=== PATIENT | male | born 1970 ===

== ENCOUNTER 2025-04-01 12:45 | Emergency (ER) | payer OTHER ==
[2025-04-01] MEDS: Ondansetron 4 MG/2 ML SDV IVPUSH ONE (13:33)
[2025-04-01] MEDS: Ketamine 500 mg/10 ML MDV IV ONE (15:47)
[2025-04-01] MEDS: Propofol 200 MG/20 ML SDV IVPUSH ONE (17:12)
== END 2025-04-01 17:22 | disposition home or self-care (01) ==
LOC: MW.ED 12:45
DX: S82.852A Displaced trimalleolar fracture of left lower leg, initial encounter for closed fracture (principal); Z75.3 Unavailability and inaccessibility of health-care facilities; W01.0XXA Fall on same level from slipping, tripping and stumbling without subsequent striking against object, initial encounter; X50.1XXA Overexertion from prolonged static or awkward postures, initial encounter
CPT/HCPCS: 73590; 73600; J1171; J2405; J2704; J3490; J7030; 99283